=== PATIENT | female | born 1970 | race Caucasian/White ===

== ENCOUNTER 2018-03-28 10:23 | Outpatient (CLI) | payer OTHER ==
[~2018-03-28 10:23] MED LIST: NAPR500T14 PO
== END 2018-03-28 17:00 | disposition home or self-care (01) ==
LOC: SONOGRAMA 10:23
DX: M25.561 Pain in right knee (principal)

== ENCOUNTER 2018-05-03 11:57 | Outpatient (CLI) | payer OTHER | END 2018-05-03 12:19 | disposition home or self-care (01) | LOC: LAB 11:57 | DX: I10 Essential (primary) hypertension (principal); M54.5 Low back pain; Z01.810 Encounter for preprocedural cardiovascular examination; E03.8 Other specified hypothyroidism; E78.89 Other lipoprotein metabolism disorders; E66.8 Other obesity; G62.89 Other specified polyneuropathies ==

== ENCOUNTER 2018-07-05 10:11 | Outpatient (CLI) | payer OTHER | END 2018-07-05 12:34 | disposition home or self-care (01) | LOC: LAB 10:11 | DX: M25.571 Pain in right ankle and joints of right foot (principal); L68.0 Hirsutism; E66.3 Overweight; E53.9 Vitamin B deficiency, unspecified; N93.0 Postcoital and contact bleeding ==

== ENCOUNTER → 2019-11-04 | Outpatient (CLI) | payer OTHER ==
[~2019-11-04] MED LIST changes: +BUSPIRONE HCL7.5 MG; +LEVAQUIN500 MG; +LEXAPRO20 MG; +LIPITOR20 MG; +PREMPRO 0.3 MG1 EACH; +SYNTHROID100 MCG; +TOPROL XL50 M1
== END | disposition home or self-care (01) ==
LOC: MRI 14:44
PROVIDERS: ATTEND Obstetrics & Gynecology
DX: M54.5 Low back pain (principal)
CPT/HCPCS: 72149

== ENCOUNTER 2019-11-06 13:53 | Emergency (ER) | payer OTHER ==
[~2019-11-06] VITALS: Ht 170.2 cm; Wt 72.6 kg
[~2019-11-06 13:53] MED LIST changes: -BUSPIRONE HCL7.5 MG; -LEVAQUIN500 MG; -LEXAPRO20 MG; -LIPITOR20 MG; -PREMPRO 0.3 MG1 EACH; -SYNTHROID100 MCG; -TOPROL XL50 M1
[2019-11-06] MEDS ORDERED: TOPROL XL50 M1 (14:19)
[2019-11-06] MEDS ORDERED: LEXAPRO20 MG (14:20)
[2019-11-06] MEDS ORDERED: LIPITOR20 MG (14:20)
[2019-11-06] MEDS ORDERED: SYNTHROID100 MCG (14:20)
[2019-11-06] MEDS ORDERED: BUSPIRONE HCL7.5 MG (14:20)
[2019-11-06] MEDS ORDERED: PREMPRO 0.3 MG1 EACH (14:21)
[2019-11-06] MEDS ORDERED: LEVAQUIN500 MG (14:22)
== END 2019-11-06 16:42 | disposition home or self-care (01) ==
LOC: ER 13:53
DX: L72.0 Epidermal cyst (principal)

== ENCOUNTER 2019-11-19 10:48 | Outpatient (CLI) | payer OTHER ==
[~2019-11-19 10:48] MED LIST changes: +BUSPIRONE HCL7.5 MG; +LEVAQUIN500 MG; +LEXAPRO20 MG; +LIPITOR20 MG; +PREMPRO 0.3 MG1 EACH; +SYNTHROID100 MCG; +TOPROL XL50 M1
== END 2019-11-19 11:03 | disposition home or self-care (01) ==
LOC: LAB 10:48
PROVIDERS: ATTEND Internal Medicine
DX: D64.89 Other specified anemias (principal); E78.2 Mixed hyperlipidemia; E03.8 Other specified hypothyroidism; Z12.11 Encounter for screening for malignant neoplasm of colon; E11.9 Type 2 diabetes mellitus without complications; R76.0 Raised antibody titer; M79.18 Myalgia, other site

== ENCOUNTER 2020-10-06 13:48 | Outpatient (CLI) | payer OTHER | END 2020-10-06 14:00 | disposition home or self-care (01) | LOC: RAD 13:48 | PROVIDERS: ATTEND Obstetrics & Gynecology | DX: R07.89 Other chest pain (principal) ==

== ENCOUNTER → 2023-06-24 | Outpatient (CLI) | payer OTHER | END | disposition home or self-care (01) | LOC: RAD 14:10 | PROVIDERS: ATTEND Obstetrics & Gynecology | DX: J45.20 Mild intermittent asthma, uncomplicated (principal) ==